=== PATIENT | female | born 1940 | race Two or more races ===

== ENCOUNTER 2021-01-17 18:00 | Emergency (ER) | payer MEDICARE, OTHER ==
[~2021-01-17] VITALS: Ht 162.6 cm; Wt 86.2 kg
[2021-01-17 18:03] VITALS: BP 148/68
[2021-01-17] MEDS ORDERED: ONDANSETRON ODT 4 MG TAB PO ONE (19:45)
[2021-01-17] MEDS ORDERED: ACETAMINOPHEN/CODEINE#3 (300/30mg) TAB PO ONE (19:45)
== END 2021-01-17 19:55 | disposition home or self-care (01) ==
LOC: ER 18:00
DX: S83.91XA Sprain of unspecified site of right knee, initial encounter (principal); M17.11 Unilateral primary osteoarthritis, right knee; M11.261 Other chondrocalcinosis, right knee; M25.461 Effusion, right knee; E11.9 Type 2 diabetes mellitus without complications; I10 Essential (primary) hypertension; X58.XXXA Exposure to other specified factors, initial encounter; Y93.89 Activity, other specified; Y92.89 Other specified places as the place of occurrence of the external cause; Y99.8 Other external cause status
CPT/HCPCS: 29505; 73562; 99283; Q0162

== ENCOUNTER 2021-01-28 20:07 | Inpatient (IN) | payer MEDICARE ==
[~2021-01-28] VITALS: Ht 152.4 cm; Wt 81.9 kg
[2021-01-28] MEDS ORDERED: SODIUM CHLORIDE 0.9% 1,000 ML IVB ONE (21:15)
[2021-01-28 22:32] LABS: Basophils # (auto) 0 10 ^3/uL (0-0.2); Eosinophils # (auto) 0.2 10 ^3/uL (0-0.8); Hemoglobin 11.8 g/dL (12.2-16.2); Mean Corpuscular Hemoglobin 21.5 pg (28.0-32.0); Neutrophils # (auto) 3.5 10 ^3/uL (1.6-8.6)
[2021-01-28 22:34] LABS: Basophils % (auto) 0.4 % (0.0-2.0); Eosinophils % (auto) 3.1 % (0.0-7.0); Hematocrit 38.4 % (36.0-46.0); Lymphocytes # (auto) 1.3 10 ^3/uL (0.4-5.4); Lymphocytes % (auto) 23.7 % (10.0-50.0); Mean Corpuscular Hgb Conc. 30.8 g/dL (32.0-36.0); Mean Corpuscular Volume 69.8 fL (80.0-100.0); Monocytes # (auto) 0.5 10 ^3/uL (0-1.3); Monocytes % (auto) 8.7 % (0.0-12.0); Neutrophils % (auto) 64.1 % (37.0-80.0); Nucleated Red Blood Cells % 0.1 %; Red Cell Distribution Width 19.5 % (11.8-14.3); White Blood Cell 5.4 10^3/uL (4.4-10.8)
[2021-01-28 22:37] LABS: Albumin 3.1 g/dL (3.4-5.0); Calcium 8.9 mg/dL (8.5-10.1); Potassium 4.8 mmol/L (3.5-5.1)
[2021-01-28 22:42] LABS: Bilirubin, Total 0.4 mg/dL (0.2-1.0); Total Protein 6.8 g/dL (6.4-8.2)
[2021-01-28 22:51] LABS: INR 1.06 (0.9-1.15); Partial Thromboplastin Time 24.2 sec (23.0-31.2)
[2021-01-28 23:16] LABS: Urine Bacteria FEW /hpf (None Seen); Urine Blood Negative /uL (Negative); Urine Hyaline Cast FEW /lpf (0 - 2); Urine WBC 20 /hpf (0 - 5)
[2021-01-29] MEDS ORDERED: cloNIDine HCL 0.1 MG TAB PO PRN (01:00)
[2021-01-29] MEDS ORDERED: cefTRIAXone 1GM/50ML D5W 50 ML IV ONE (01:00)
[2021-01-29] MEDS ORDERED: ONDANSETRON HCL 4 MG/2 ML VIAL IV PRN (01:00)
[2021-01-29] MEDS ORDERED: TEMAZEPAM 15 MG CAP PO PRN (01:00)
[2021-01-29] MEDS ORDERED: NITROGLYCERIN 0.4 MG SL TAB SL PRN (01:00)
[2021-01-29] MEDS ORDERED: DEXTROSE (50%) 50ML SYRG IV PRN (01:00)
[2021-01-29] MEDS ORDERED: MORPHINE SULFATE INJECTION 2 MG/ML SYRG IV PRN (01:00)
[2021-01-29] MEDS ORDERED: ACETAMINOPHEN 325 MG TAB PO PRN (01:00)
[2021-01-29 03:30] VITALS: BP 156/73
[2021-01-29] MEDS: ACCU-CHEK COMFORT CURVE STRIP VI SCH ×6 (04:00→23:49)
[2021-01-29 05:00] VITALS: BP 156/73
[2021-01-29] MEDS: InsuLIN REG 1unit/0.01ml Soln (100units/ml) SC SCH ×6 (05:29→23:52)
[2021-01-29] MEDS ORDERED: InsuLIN REG 1unit/0.01ml Soln (100units/ml) ONE (05:30)
[2021-01-29] MEDS ORDERED: LOSA25TA38 PO (05:55)
[2021-01-29] MEDS ORDERED: ASPI-543 PO (05:55)
[2021-01-29] MEDS ORDERED: INSREG3 IV (05:55)
[2021-01-29] MEDS ORDERED: PNEUMOCOCCAL VACC POLYS 25 MCG/0.5 ML VIAL IM ONE (08:00)
[2021-01-29 09:00] VITALS: BP 150/70
[2021-01-29] MEDS: ENOXAPARIN SOD 40 MG/0.4 ML SYRINGE SC SCH (09:46)
[2021-01-29] MEDS: FAMOTIDINE 20 MG TAB PO SCH ×2 (09:47→21:45)
[2021-01-29] MEDS ORDERED: amLODIPine BESYLATE 5 MG TAB PO SCH (10:00)
[2021-01-29 13:00] VITALS: BP 152/76
[2021-01-29 16:53] VITALS: BP 149/75
[2021-01-29] MEDS ORDERED: cefTRIAXone 1GM/50ML D5W 50 ML IV SCH (21:00)
[2021-01-29 21:17] VITALS: BP 165/83
[2021-01-30] MEDS: ACCU-CHEK COMFORT CURVE STRIP VI SCH ×2 (04:00→09:16)
[2021-01-30] MEDS: InsuLIN REG 1unit/0.01ml Soln (100units/ml) SC SCH ×2 (04:04→09:17)
[2021-01-30 04:19] VITALS: BP 138/64
[2021-01-30 05:45] LABS: Basophils # (auto) 0 10 ^3/uL (0-0.2); Eosinophils # (auto) 0.2 10 ^3/uL (0-0.8); Lymphocytes # (auto) 0.9 10 ^3/uL (0.4-5.4); Monocytes # (auto) 0.4 10 ^3/uL (0-1.3)
[2021-01-30 05:49] LABS: Basophils % (auto) 0.6 % (0.0-2.0); Eosinophils % (auto) 5.5 % (0.0-7.0); Hematocrit 35.1 % (36.0-46.0); Lymphocytes % (auto) 20.2 % (10.0-50.0); Mean Corpuscular Hemoglobin 21.9 pg (28.0-32.0); Mean Corpuscular Hgb Conc. 31.4 g/dL (32.0-36.0); Neutrophils # (auto) 2.8 10 ^3/uL (1.6-8.6); Neutrophils % (auto) 63.7 % (37.0-80.0); Nucleated Red Blood Cells % 0.4 %; Red Blood Cells 5.02 10^6/uL (4.0-5.20); Red Cell Distribution Width 19.7 % (11.8-14.3); White Blood Cell 4.4 10^3/uL (4.4-10.8)
[2021-01-30 06:05] LABS: Potassium 4.2 mmol/L (3.5-5.1)
[2021-01-30 06:09] LABS: BUN/Creatinine Ratio 24.6; Calcium 8.7 mg/dL (8.5-10.1)
[2021-01-30 09:00] VITALS: BP 140/68
[2021-01-30] MEDS ORDERED: LOSARTAN POTASSIUM 25 MG TAB PO SCH (10:00)
[2021-01-30] MEDS ORDERED: FAMOTIDINE 20 MG TAB PO SCH (10:00)
[2021-01-30] MEDS: ENOXAPARIN SOD 40 MG/0.4 ML SYRINGE SC SCH (10:05)
[2021-01-30 10:11] VITALS: BP 140/68
== END 2021-01-30 12:00 | disposition home or self-care (01) | DRG 637 ==
LOC: ER 20:07 → TELE 20:08 → ER 01-29 03:25 → TELE-EAST 01-29 04:31
PROVIDERS: ADMIT Nurse Practitioner; ATTEND Nurse Practitioner
DX: E11.649 Type 2 diabetes mellitus with hypoglycemia without coma (principal); G93.41 Metabolic encephalopathy; E44.0 Moderate protein-calorie malnutrition; N39.0 Urinary tract infection, site not specified; M19.011 Primary osteoarthritis, right shoulder; Z79.4 Long term (current) use of insulin; I10 Essential (primary) hypertension; M79.604 Pain in right leg; M79.605 Pain in left leg; Z20.822 Contact with and (suspected) exposure to COVID-19; Z68.35 Body mass index [BMI] 35.0-35.9, adult
CPT/HCPCS: 36415; 70450; 71045; 80048; 80053; 81001; 82010; 82962; 83036; 83735; 83880; 84443; 84484; 85025; 85610; 85730; 87086; 87426; 93005; 96361; 96365; G0378; J0696; J1815